=== PATIENT | female | born 1955 | race Caucasian/White ===

== ENCOUNTER → 2021-08-24 10:00 | Outpatient (BNVA) | payer MEDICARE, MEDICAID, SELFPAY | PROVIDERS: Visit Provider Physician Assistant | DX: E66.01 Morbid (severe) obesity due to excess calories (principal); Z68.43 Body mass index [BMI] 50.0-59.9, adult; E03.9 Hypothyroidism, unspecified; F41.9 Anxiety disorder, unspecified; Z98.84 Bariatric surgery status | CPT/HCPCS: 99202 ==

== ENCOUNTER → 2021-09-11 11:00 | Outpatient (BNVA) | payer MEDICARE, MEDICAID, SELFPAY | PROVIDERS: Visit Provider Counselor Mental Health | DX: F41.1 Generalized anxiety disorder (principal); E66.01 Morbid (severe) obesity due to excess calories | CPT/HCPCS: 90791 ==

== ENCOUNTER → 2021-09-18 14:00 | Outpatient (BNVA) | payer MEDICARE, MEDICAID, SELFPAY | PROVIDERS: Visit Provider Counselor Mental Health | DX: F41.1 Generalized anxiety disorder (principal); E66.01 Morbid (severe) obesity due to excess calories | CPT/HCPCS: 90834 ==

== ENCOUNTER 2021-10-04 09:04 | Outpatient (REF) | payer MEDICARE, MEDICAID, SELFPAY | END 2021-10-04 09:05 | disposition home or self-care (01) | LOC: HO.XRAY 09:04 | PROVIDERS: Visit Provider Physician Assistant | DX: Z13.89 Encounter for screening for other disorder (principal) ==

== ENCOUNTER → 2021-11-09 15:31 | Outpatient (BNVA) | payer MEDICARE, MEDICAID, SELFPAY | PROVIDERS: Visit Provider Physician Assistant | DX: E66.01 Morbid (severe) obesity due to excess calories (principal); Z68.42 Body mass index [BMI] 45.0-49.9, adult; Z98.84 Bariatric surgery status | CPT/HCPCS: 99212 ==